=== PATIENT | male | born 1995 | race Caucasian/White ===

== ENCOUNTER 2020-11-13 14:19 | Emergency (ER) | payer BC, SELFPAY ==
[2020-11-13 15:03] VITALS: BP 126/96; PULSE 87; RESP 20; TEMP 36.4; O2SAT 100
--- NOTE | 2020-11-13 16:06 | ED.BACK ---
HPI - Back Pain/Injury General Chief Complaint: Back Pain/Injury Stated Complaint: neck and back pain Time Seen by Provider: 11/13/20 15:46 Source: patient Mode of arrival: ambulatory Limitations: no limitations History of Present Illness HPI Narrative: 25-year-old male Basically healthy Presents complaining of neck and left-sided shoulder upper back pain Patient reports that this pain started about 7 to 10 days ago when he lifted something heavy at work. 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 He was seen at [facility] about a week ago and reports he was given Tylenol No. 4 prescription which helped until he ran out and now the pain is worsening again He has neck pain, and pain radiating into the posterior upper back and shoulder on the left side He is not noticed any numbness or weakness Symptoms are worse with head movement toward the affected side or trying to move the arm and shoulder around Related Data Allergies Allergy/AdvReac Type Severity Reaction Status Date / Time Penicillins Allergy Unknown Verified 11/13/20 16:08 Review of Systems Review of Systems: All systems reviewed & are unremarkable except as noted in HPI and below Constitutional: Constitutional: Reports no additional constitutional complaints, Denies chills, Denies fever(s) and Denies headache(s) Eyes: Eyes: Reports no additional eye complaints and Denies change in vision ENT: Denies headache(s) and Denies sore throat Cardiovascular: Cardiovascular: Denies chest pain, Reports radiating jaw, neck or arm pain and Denies dyspnea Respiratory: Respiratory: Denies cough and Denies dyspnea Musculoskeletal: Musculoskeletal: Reports back pain, Denies deformity, Denies arthralgias, Denies joint swelling and Denies numbness Comments: Neck pain Integumentary/Breasts: Skin/Breast: Denies rash and Denies wounds Neurologic: Denies headache(s), Denies focal weakness and Denies numbness Psychiatric: Psychiatric: Reports no additional psychiatric complaints Endocrine: Endocrine: Reports no additional endocrine complaints Hematologic/Lymphatic: Hematologic/Lymphatic: Reports no additional hematologic/lymphatic complaints Allergic/Immunologic: Allergic/Immunologic: Reports no additional allergic/immunologic complaints [facility] Social History Social History Gender identity (if verbalized by the patient): Male Exam Const: General: cooperative, no acute distress and alert Orientation/consciousness: patient oriented x3 (alert) HENMT: Head: normal to inspection, normocephalic and atraumatic Ears: external ears normal General nose exam: no epistaxis Eyes: Conjunctivae: conjunctivae normal EOM: EOMs intact bilaterally Neck: Neck: normal visual inspection, supple and no JVD Other: Decreased range of motion secondary to pain, radicular symptoms are elicited with flexion to the left or axial compression, there is tenderness of the left-sided paraspinous trapezius and upper back muscles, there is some mild midline spinal tenderness at several spots in the lumbar and thoracic but not in the cervical spine Chest: Chest palpation & inspection: tenderness Resp: Effort & Inspection: normal respiratory effort and not labored Auscultation: no rales, no rhonchi, no wheezes and other (BS =) Back/Spine/Pelvis: Other: Couple areas of tenderness in the mid T-spine and mid L-spine Skin: General skin exam: normal color and no rashes or lesions noted Neuro: General: patient oriented x3 (alert) and moves all extremities Speech: normal speech Other: Normal python consultant bilaterally, normal sensation to light touch in radial median and ulnar nerve distributions bilaterally Extrem: General: normal to inspection and no pedal edema Psych: Affect: normal affect Course Course Emergency Course: Discussed with patient that he is likely to need additional follow-up evaluation and treatment to be coordinated either by his primary care doctor or possibly via occupational medicine as per his
[2020-11-13 16:17] VITALS: BP 120/77; PULSE 68; RESP 18; O2SAT 96
[2020-11-13] MEDS: KETOROLAC (*BKC) 60 MG/2 ML VIAL IM (16:40)
== END 2020-11-13 17:25 | disposition home or self-care (01) ==
PROVIDERS: Emergency Provider Emergency Medicine
DX: M50.10 Cervical disc disorder with radiculopathy, unspecified cervical region (principal)
CPT/HCPCS: 96372; 99283; J1885

== ENCOUNTER 2022-03-29 09:46 | Emergency (ER) | payer OTHER, SELFPAY ==
[2022-03-29 09:53] VITALS: BP 127/73; PULSE 90; RESP 20; TEMP 36.7; O2SAT 99
--- NOTE | 2022-03-29 10:16 | ED.EYEPROB ---
HPI - Eye Problem General Chief complaint: Eye Problems Stated complaint: scratchedto right eye Time Seen by Provider: 03/29/22 10:09 Source: patient Mode of arrival: ambulatory Limitations: no limitations History of Present Illness HPI Narrative: 27 years old white male got scratched by his shoe while a dog at home last night. 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, no gross motor deficit Course Course Emergency Course: Positive fluorescein test, corneal abrasion, erythromycin ointment started in the ED prior to discharge Vital Signs Vital signs: Vital Signs Temperature 36.7 C 03/29/22 09:53 Pulse Rate 90 03/29/22 09:53 Respiratory Rate 20 03/29/22 09:53 Blood Pressure 127/73 03/29/22 09:53 Pulse Oximetry 99 03/29/22 09:53 Oxygen Delivery Room Air 03/29/22 09:53 Temperature 36.7 C 03/29/22 09:53 Pulse Rate 90 03/29/22 09:53 Respiratory Rate 20 03/29/22 09:53 Blood Pressure 127/73 03/29/22 09:53 Pulse Oximetry 99 03/29/22 09:53 Oxygen Delivery Room Air 03/29/22 09:53 Procedures Other Procedure Procedure 1: Other Procedure: Right eye exam, unable to open right eye, tears, injected conjunctiva, tetracaine drops, complete improvement of the pain, fluorescein strip, positive for abrasion, irrigation, erythromycin ointment placed MDM - Eye Problem Differential Diagnosis Differential diagnosis: Likely corneal abrasion and conjunctivitis Discharge Plan Discharge Clinical Impression: Corneal abrasion Patient Disposition: Home, Self-Care Condition: Improved Instructions: Antibiotic Form Additional Instructions: Return if symptoms are worsening , call your family physician for appointment, take Tylenol as as needed for aches and pain, continue home medications. Follow-up with [facility] Prescriptions: New erythromycin 5 mg/gram (0.5 %) ointment 0.5 inch ophthalmic (eye) QID Qty: 1 0RF No Action methocarbamol 750 mg tablet 750 mg PO QID Qty: 30 0RF naproxen 500 mg tablet 500 mg PO BID Qty: 30 0RF Follow-up/Referrals: PHYSICIAN,SCALE EXPERT [Primary Care Provider] -
[2022-03-29] MEDS: ERYTHROMYCIN OPHTH OINTMENT 1 GM TUBE 1 APPLIC EACH EYE (10:19)
== END 2022-03-29 10:25 | disposition home or self-care (01) ==
PROVIDERS: Emergency Provider Emergency Medicine
DX: S05.01XA Injury of conjunctiva and corneal abrasion without foreign body, right eye, initial encounter (principal); W54.8XXA Other contact with dog, initial encounter
CPT/HCPCS: 99283; A9270